=== PATIENT | male | born 1975 | race Caucasian/White ===

== ENCOUNTER → 2021-03-14 | Outpatient (REF) ==
[~2021-03-14] MED LIST: FEXO-14 PO; HYDR-3729 PO
--- NOTE | 2021-03-14 13:46 | Diagnostic Imaging Report ---
INDICATION: Right wrist pain. TIME OF EXAM: 11:46 AM. FINDINGS: Three views of the right wrist were obtained. The distal radius and ulna are intact. The carpus is intact. The visualized metacarpals are unremarkable. No fractures are seen. IMPRESSION: No acute bony abnormality is detected. Dictated by: Dictated on workstation # [id number]
== END ==
LOC: OCC 11:32
PROVIDERS: ATTEND Family Medicine
DX: M25.531 Pain in right wrist (principal)
CPT/HCPCS: 73110

== ENCOUNTER → 2021-03-22 | Outpatient (REF) | payer OTHER ==
--- NOTE | 2021-03-22 18:16 | Diagnostic Imaging Report ---
EXAMINATION: Magnetic resonance imaging of the right wrist without contrast DATE: March 22, 2021. COMPARISON: Right wrist radiographs March 14, 2021. HISTORY: 45-year-old male, right wrist injury with wrist pain. TECHNIQUE: Magnetic Resonance Imaging sequences were performed of the wrist without contrast. FINDINGS: TRIANGULAR FIBROCARTILAGE COMPLEX: There is question of a tear of the radial aspect of the triangular fibrocartilage disc on coronal T2 fat saturation sequence image 12 versus artifact. There is no abnormal fluid in the distal radioulnar joint. The additional components of the triangular fibrocartilage complex appear grossly intact on non-arthrogram imaging assessment. INTRINSIC LIGAMENTS: The scapholunate and lunotriquetral ligaments are grossly intact. JOINTS: The radiocarpal, intercarpal, and distal radioulnar joints are intact. There is no joint effusion. CARPAL TUNNEL: The flexor retinaculum is unremarkable. The flexor digitorum superficialis and profundus are intact. The median nerve is unremarkable. FLEXOR TENDONS: The flexor carpi ulnaris, flexor pollicis longus and carpi radialis are intact. EXTENSOR TENDONS: Radial side extensor tendons are intact including: extensor pollicis longus, extensor carpi radialis brevis, extensor carpi radialis longus, extensor pollicis brevis and abductor pollicis longus. The extensor carpi ulnaris, extensor digitorum, extensor digiti minimi and extensor indicis tendons are intact. BONE: The bones all have normal configuration. The bone marrow signal is within normal limits. Specifically, negative for fracture, osteomyelitis, osteonecrosis, or marrow replacing process. BURSAE AND SOFT TISSUES: The bursae and soft tissues surrounding the wrist are within normal limits. IMPRESSION: 1. Potential tear of the radial aspect of the triangular fibrocartilage disc versus artifact. This would be more optimally evaluated on dedicated MRI wrist arthrogram study. 2. Grossly intact scapholunate and lunotriquetral ligaments. 3. Intact tendons without evidence of tenosynovitis. 4. No acute fracture or bone contusion. Dictated by: Dictated on workstation # [id number]
== END ==
LOC: RAD 15:11 → EDSTATUS 15:30
PROVIDERS: ATTEND Family Medicine
DX: S69.91XA Unspecified injury of right wrist, hand and finger(s), initial encounter (principal); X58.XXXA Exposure to other specified factors, initial encounter
CPT/HCPCS: 73221

== ENCOUNTER 2021-05-10 07:58 | Outpatient (RCR) | payer OTHER | END 2021-06-08 16:00 | disposition home or self-care (01) | PROVIDERS: ATTEND Family Medicine | DX: S63.501A Unspecified sprain of right wrist, initial encounter (principal); X50.9XXA Other and unspecified overexertion or strenuous movements or postures, initial encounter; Y93.9 Activity, unspecified; Y92.89 Other specified places as the place of occurrence of the external cause; Y99.0 Civilian activity done for income or pay ==